=== PATIENT | female | born 1995 | race Two or more races ===

== ENCOUNTER 2021-02-15 10:52 | Emergency (ER) | payer OTHER ==
[~2021-02-15] VITALS: Ht 165.1 cm; Wt 76.2 kg
== END 2021-02-15 12:29 | disposition home or self-care (01) ==
LOC: ER 10:52
DX: R10.84 Generalized abdominal pain (principal)

== ENCOUNTER 2021-02-16 08:11 | Outpatient (CLI) | payer OTHER | END 2021-02-16 08:27 | disposition home or self-care (01) | LOC: SONOGRAMA 08:11 | DX: K80.00 Calculus of gallbladder with acute cholecystitis without obstruction (principal) ==

== ENCOUNTER 2021-03-05 21:54 | Emergency (ER) | payer OTHER ==
[~2021-03-05] VITALS: Ht 165.1 cm; Wt 76.2 kg
== END 2021-03-06 04:15 | disposition home or self-care (01) ==
LOC: ER 21:54
DX: G43.909 Migraine, unspecified, not intractable, without status migrainosus (principal)